=== PATIENT | male | born 1950 | race Caucasian/White ===

== ENCOUNTER → 2016-11-30 | Outpatient (CLI) | payer BC ==
[~2016-11-30] MED LIST: ASPEC325 PO; CETI10TA84 PO; MULT-506 PO; PRT/20 PO; [UNRECOGNIZED DRUG - OTHER] PO
--- NOTE | 2016-11-30 12:27 | DIAGNOSTIC IMAGING REPORT ---
CHEST 2 VIEWS ROUTINE CLINICAL HISTORY: Cough. COMPARISON STUDY: Chest radiograph February 01, [address] T February 04, 2016. FINDINGS: Anterior cervical spine fusion is partially imaged. Lung volumes are normal. No pneumothorax or pleural effusion is present. There is no consolidation. Linear right midlung opacities are unchanged and likely reflect scarring or atelectasis. Cardiomediastinal silhouette is normal. IMPRESSION: No acute cardiopulmonary findings. Electronically signed by: Ashu Pena M.D. 11/30/2016 12:26 PM Dictated Date/Time: 11/30/2016 12:24 PM
== END | disposition home or self-care (01) ==
LOC: C.RAD1850 12:14
PROVIDERS: ATTEND Family Medicine
DX: R05 Cough (principal)

== ENCOUNTER 2017-02-13 18:46 | Inpatient (IN) | payer BC, OTHER ==
[~2017-02-13] VITALS: Ht 177.8 cm; Wt 77.6 kg
[~2017-02-13 18:46] MED LIST changes: -OXYM0.0592 NAE; -PRD20 PO
--- NOTE | 2017-02-13 19:16 | EMERGENCY ROOM VISIT NOTE ---
History Report prepared by Olvin: Kermit Mehta Under the Supervision of: Dr. Pio Hoover M.D. First contact with patient: 19:02 Chief Complaint: ABNORMAL LABS Stated Complaint: HIGH WHITE BLOOD CELL COUNT-PHYSICIAN REFERRED History of Present Illness The patient is a 66 year old male who presents to the Emergency Room with complaints of a white blood cell count of 31. Since November, the patient has been having trouble with a cough and multiple sinus infections. He went to his PCP today and received blood work. They called him stating that his white blood cell counts were abnormally high. He usually runs between 4-10. The patient has a history of TB, specifically DINO. Last night, the patient began to experience a fever, chills, diaphoresis, a headache, and joint aches. When he woke up this morning, he noticed that his fever had broken. He finished his last dose of antibiotics and Tessalon Pearls last night. Source of History: patient Onset: recently Position: other (Global) Symptom Intensity: WBC Count of 31 Quality: other (High WBC count) Timing: constant Associated Symptoms: + chills, + diaphoresis, + cough, No fevers Review of Systems All systems have been listed, reviewed, and are negative other than those previously mentioned. Please see Additional Medical History Sheet. 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 (3) Cervical Disc Displacmnt (4) Diverticulosis Colon (W/O Ment Of Hemorrhage) (5) Elevated white blood cell count (6) Esophageal Reflux (7) Hyperlipidemia Nec/Nos (8) Right Knee DJD Family History Cancer Diabetes mellitus Social History Smoking Status: Never Smoker Alcohol Use: none Marital Status: Housing Status: lives with family Occupation Status: retired Current/Historical Medications Scheduled Oxymetazoline Hcl (Nasal [place]), 1 SPRAY MARCE UD Pantoprazole (Protonix), 20 MG PO BID Allergies Coded Allergies: NO KNOWN DRUG ALLERGIES (Verified Allergy, Unknown, NONE, 02/13/17) POLLEN (Verified Allergy, Unknown, DUST,POLLEN-ITCHY EYES RUNNY NOSE, 02/21) Physical Exam Vital Signs Date Time Temp Pulse Resp B/P (MAP) Pulse Ox O2 Delivery O2 Flow Rate FiO2 02/13/17 22:40 67 18 117/72 95 Room Air 02/13/17 20:54 95 Room Air 02/13/17 20:54 73 18 112/63 95 Room Air 02/13/17 18:53 36.7 92 20 135/77 95 Room Air Physical Exam GENERAL: Patient awake, alert, oriented x 3. Patient follows commands. Patient does not appear toxic. Patient is adequately hydrated and well- nourished. SKIN: No erythema, pallor, cyanosis or rash HEENT: Normal head, pupils equal, reactive to light and accommodation. Hearing aids removed. Ears normal. No signs of infection. Oral cavity and posterior pharynx appear normal. Neck: Without cervical adenopathy, no neck vein distention. LUNGS: Clear to auscultation. No wheezes, no rales, no rhonchi. HEART: No murmurs. No gallops. No rubs ABDOMEN: No masses, no rebound, no hepatomegaly or splenomegaly. EXTREMITIES: No signs of trauma. No pedal or pretibial edema. No calf or thigh tenderness. NEUROLOGIC: Cranial nerves II-XII within normal limits. No gross motor sensory function deficits. Medical Decision & Procedures Laboratory Results 02/13/17 19:34 Test 02/13/17 19:34 02/13/17 22:30 02/13/17 22:44 RDW Standard Deviation 43.8 fL (36.4-46.3) RDW Coefficient of Variation 14.1 % (11.5-14.5) White Blood Count 35.12 K/uL (4.8-10.8) Red Blood Count 4.78 M/uL (4.7-6.1) Hemoglobin 14.1 g/dL (14.0-18.0) Hematocrit 40.8 % (42-52) Mean Corpuscular Volume 85.4 fL (80-100) Mean Corpuscular Hemoglobin 29.5 pg (25-34) Mean Corpuscular Hemoglobin Concent 34.6 g/dl (32-36) Platelet Count 205 K/uL (130-400) Mean Platelet Volume 9.6 fL (7.4-10.4) Neutrophils (%) (Auto) 88.2 % Lymphocytes (%) (Auto) 8.3 % Monocytes (%) (Auto) 2.2 % Eosinophils (%) (Auto) 0.6 % Basophils (%) (Auto) 0.2 % Neutrophils # (Auto) 30.98 K/uL (1.4-6.5) Lymphocytes # (Auto) 2.92 K/uL (1.2-3.4) Monocytes # (Auto) 0.78 K/uL (0.11-0.59) Eosinophils # (Auto) 0.21 K/uL (0-0.5) Basophils # (Auto) 0.06 K/uL (0-0.2) Immature Granulocyte % (Auto) 0.5 % Immature Granulocyte # (Auto) 0.17 K/uL (0.00-0.02) Anion Gap 5.0 mmol/L (3-11) Est Creatinine Clear Calc Drug Dose 68.8 ml/min BUN/Creatinine Ratio 15.2 (10-20) Lactic Acid Level 1.7 mmol/L (0.4-2.0) Calcium Level 9.1 mg/dl (8.5-10.1) Total Bilirubin 1.4 mg/dl (0.2-1) Aspartate Amino Transf (AST/SGOT) 17 U/L (15-37) Alanine Aminotransferase (ALT/SGPT) 28 U/L (12-78) Alkaline Phosphatase 79 U/L (45-117) Troponin I < 0.015 ng/ml (0-0.045) Total Protein 7.4 gm/dl (6.4-8.2) Albumin 3.4 gm/dl (3.4-5.0) Globulin 4.0 gm/dl (2.5-4.0) Albumin/Globulin Ratio 0.9 (0.9-2) Laboratory results as stated above per my review. ECG Indication: other (Abnormal Labs) Rate (beats per minute): 81 Rhythm: normal sinus Findings: no acute ischemic change, no ectopy ED Course 1901: Past medical records reviewed. The patient was evaluated in room A9B. A complete history and physical examination was performed. 2030: Upon reevaluation, the patient is resting. I discussed today's findings with him. He verbalized agreement of the treatment plan. I spoke with Dr. Lerma of the [facility] to evaluate the patient for further management. Medical Decision I considered multiple diagnoses including: bronchitis, pneumonia, TB, and DINO. The patient is here with a cough, fever and night sweats. He is a prior history of mycobacterium infection. Multiple labs, EKG and imaging were obtained. Chest x-ray does not appear significantly different from his most recent chest x-rays. White count is significantly elevated. The patient was placed in respiratory isolation. I remain concerned that he may have another TB-like infection. I discussed care with the patient, his and the hospitalist. Medication Reconcilliation Current Medication List: was personally reviewed by me Blood Pressure Screening Patient's blood pressure: Normal blood pressure Blood pressure disposition: Did not require urgent referral Consults Time Called: 2028 Consulting Physician: Dr. Maria Guadalupe Pete [facility] [place] Returned Call: [phone] Discussed the patient's case with him. The patient will be evaluated for further management. Impression Primary Impression: Pulmonary infection Additional Impressions: History of Mycobacterium avium complex infection Leukocytosis Scribe Attestation The scribe's documentation has been prepared under my direction and personally reviewed by me in its entirety. I confirm that the note above accurately reflects all work, treatment, procedures, and medical decision making performed by me. Departure Information Dispostion Being Evaluated By Hospitalist Referrals Murali Molina MD (PCP) Patient Instructions My [facility] Problem Qualifiers
[2017-02-13] MEDS ORDERED: OXYM0.0592 NAE (19:26)
[2017-02-13 20:09] LABS: ALT/SGPT 28 U/L (12-78); BLOOD UREA NITROGEN 17 mg/dl (7-18); BUN/CREATININE RATIO 15.2 (10-20); CALCIUM 9.1 mg/dl (8.5-10.1); CARBON DIOXIDE 29 mmol/L (21-32); CHLORIDE 105 mmol/L (98-107); CREATININE 1.09 mg/dl (0.60-1.40); GLUCOSE 117 mg/dl (70-99); HEMATOCRIT 40.8 % (42-52); MEAN CELL VOLUME 85.4 fL (80-100); MEAN CORPUSCULAR HEMOGLOBIN 29.5 pg (25-34); MEAN CORPUSCULAR HGB CONC 34.6 g/dl (32-36); MEAN PLATELET VOLUME 9.6 fL (7.4-10.4); PLATELET COUNT 205 K/uL (130-400); POTASSIUM 3.5 mmol/L (3.5-5.1); RED BLOOD COUNT 4.78 M/uL (4.7-6.1); SODIUM 139 mmol/L (136-145); WHITE BLOOD COUNT 35.12 K/uL (4.8-10.8)
[2017-02-13 20:13] LABS: ALB/GLOB RATIO 0.9 (0.9-2); ALKALINE PHOSPHATASE 79 U/L (45-117); AST/SGOT 17 U/L (15-37)
[2017-02-13 20:14] LABS: BASO % 0.2 %; BASO ABS # 0.06 K/uL (0-0.2); COMPLETE YES; EOS % 0.6 %; IG% 0.5 %; LYMPH % 8.3 %; LYMPH ABS # 2.92 K/uL (1.2-3.4); MONO % 2.2 %; NEUT % 88.2 %
[2017-02-13] MEDS ORDERED: ONDANSETRON INJ 2 MG/ML 2 ML VIAL IV PRN (22:15)
[2017-02-13] MEDS ORDERED: ALUMINUM/MAGNESIUM/SIMETH (MAALOX MAX) 30 ML UDC PO PRN (22:15)
[2017-02-13] MEDS ORDERED: POLYETHYLENE (MIRALAX) 17 GM PACK PO PRN (22:15)
[2017-02-13] MEDS ORDERED: MAGNESIUM HYDROXIDE SUSP 30 ML UDC PO PRN (22:15)
[2017-02-13] MEDS ORDERED: ACETAMINOPHEN 325 MG TAB PO PRN (22:15)
[2017-02-13] MEDS ORDERED: OPTIRAY 320 IV PRN (23:00)
[2017-02-13 23:11] LABS: HEMATOCRIT 43.8 % (42-52); MEAN CELL VOLUME 85.5 fL (80-100); MEAN CORPUSCULAR HEMOGLOBIN 28.7 pg (25-34); MEAN CORPUSCULAR HGB CONC 33.6 g/dl (32-36); MEAN PLATELET VOLUME 9.8 fL (7.4-10.4); PLATELET COUNT 204 K/uL (130-400); RED BLOOD COUNT 5.12 M/uL (4.7-6.1); WHITE BLOOD COUNT 27.44 K/uL (4.8-10.8)
[2017-02-13 23:17] LABS: PROTHROMBIN TIME (PATIENT) 10.8 SECONDS (9.0-12.0)
[2017-02-13 23:23] VITALS: BP 106/68; PULSE 66; TEMP 36.8; O2SAT 94; Ht 177.8 cm; Wt 77.6 kg
[2017-02-13 23:27] LABS: CREATININE 0.97 mg/dl (0.60-1.40)
--- NOTE | 2017-02-13 23:29 | History and Physical ---
History & Physical Date & Time of Service: Feb 13, 2017 at 23:25 Chief Complaint: Elevated White Blood Cell Count Primary Care Physician: Murali Molina MD History of Present Illness This is a 66 y/o M who presents to the ED after being told by his PCP that his labs from earlier today revealed a markedly elevated white count. He has been battling a persistent cough since November. His PCP's office has tried different treatment modalities without much improvement. He did have a sputum culture also that was reportedly negative. He was most recently treated for sinusitis; unsure of the antibiotic. He does have a history of DINO in 2013 that was treated with azithromycin, ethambutol and rifampin. He has since been clear of DINO. He has had chills/sweats/weakness otherwise ROS is negative. 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 Past Medical/Surgical History Medical Problems: (1) Cerv Spondyl W Myelopath Status: Chronic (2) Cervical Disc Degen Status: Chronic (3) Cervical Disc Displacmnt Status: Chronic (4) Diverticulosis Colon (W/O Ment Of Hemorrhage) Status: Chronic (5) Esophageal Reflux Status: Chronic (6) Hyperlipidemia Nec/Nos Status: Chronic Family History Cancer Diabetes mellitus Social History Smoking Status: Never Smoker Alcohol Use: occasionally Drug Use: none Marital Status: Housing status: lives with family Occupational Status: retired Immunizations History of Influenza Vaccine: Yes History of Tetanus Vaccine?: Yes History of Pneumococcal: No History of Hepatitis B Vaccine: Unknown Multi-Drug Resistant Organisms History of MDRO: No Allergies Coded Allergies: NO KNOWN DRUG ALLERGIES (Verified Allergy, Unknown, NONE, 02/13/17) POLLEN (Verified Allergy, Unknown, DUST,POLLEN-ITCHY EYES RUNNY NOSE, 02/21) Home Medications Scheduled Oxymetazoline Hcl (Nasal [place]), 1 SPRAY MARCE UD Pantoprazole (Protonix), 20 MG PO BID Review of Systems Constitutional: + chills, + sweats Respiratory: + cough, No shortness of breath, No dyspnea on exertion, No dyspnea at rest Cardiovascular: No chest pain Abdomen: No pain, No nausea, No vomiting, No diarrhea Genitourinary - Male: No hematuria, No dysuria, No urinary frequency, No urinary urgency Physical Exam Vital Signs Date Time Temp Pulse Resp B/P (MAP) Pulse Ox O2 Delivery O2 Flow Rate FiO2 02/13/17 23:02 67 18 117/72 95 02/13/17 22:40 67 18 117/72 95 Room Air 02/13/17 20:54 95 Room Air 02/13/17 20:54 73 18 112/63 95 Room Air 02/13/17 18:53 36.7 92 20 135/77 95 Room Air General Appearance: no apparent distress Eyes: PERRL, EOMI ENT: hearing grossly normal, pharynx normal Respiratory/Chest: lungs clear, normal breath sounds, no respiratory distress, no accessory muscle use Cardiovascular: regular rate, rhythm, no edema, no murmur, normal peripheral pulses Abdomen/GI: normal bowel sounds, non tender, soft Extremities/Musculoskelatal: no calf tenderness, no pedal edema, normal range of motion Neurologic/Psych: alert, normal mood/affect, oriented x 3 Diagnostics Laboratory Results Results Past 24 Hours Test 02/13/17 19:34 02/13/17 22:44 02/13/17 22:50 Range/Units White Blood Count 35.12 27.44 4.8-10.8 K/uL Red Blood Count 4.78 5.12 4.7-6.1 M/uL Hemoglobin 14.1 14.7 14.0-18.0 g/dL Hematocrit 40.8 43.8 42-52 % Mean Corpuscular Volume 85.4 85.5 80-100 fL Mean Corpuscular Hemoglobin 29.5 28.7 25-34 pg Mean Corpuscular Hemoglobin Concent 34.6 33.6 32-36 g/dl Platelet Count 205 204 130-400 K/uL Mean Platelet Volume 9.6 9.8 7.4-10.4 fL Neutrophils (%) (Auto) 88.2 % Lymphocytes (%) (Auto) 8.3 % Monocytes (%) (Auto) 2.2 % Eosinophils (%) (Auto) 0.6 % Basophils (%) (Auto) 0.2 % Neutrophils # (Auto) 30.98 1.4-6.5 K/uL Lymphocytes # (Auto) 2.92 1.2-3.4 K/uL Monocytes # (Auto) 0.78 0.11-0.59 K/uL Eosinophils # (Auto) 0.21 0-0.5 K/uL Basophils # (Auto) 0.06 0-0.2 K/uL RDW Standard Deviation 43.8 44.0 36.4-46.3 fL RDW Coefficient of Variation 14.1 14.1 11.5-14.5 % Immature Granulocyte % (Auto) 0.5 % Immature Granulocyte # (Auto) 0.17 0.00-0.02 K/uL Sodium Level 139 136-145 mmol/L Potassium Level 3.5 3.5-5.1 mmol/L Chloride Level 105 98-107 mmol/L Carbon Dioxide Level 29 21-32 mmol/L Anion Gap 5.0 3-11 mmol/L Blood Urea Nitrogen 17 7-18 mg/dl Creatinine 1.09 0.60-1.40 mg/dl Est Creatinine Clear Calc Drug Dose 68.8 ml/min Estimated GFR () 81.5 Estimated GFR (Non- 70.4 BUN/Creatinine Ratio 15.2 10-20 Random Glucose 117 70-99 mg/dl Lactic Acid Level 1.7 0.4-2.0 mmol/L Calcium Level 9.1 8.5-10.1 mg/dl Total Bilirubin 1.4 0.2-1 mg/dl Aspartate Amino Transf (AST/SGOT) 17 15-37 U/L Alanine Aminotransferase (ALT/SGPT) 28 12-78 U/L Alkaline Phosphatase 79 45-117 U/L Troponin I < 0.015 0-0.045 ng/ml Total Protein 7.4 6.4-8.2 gm/dl Albumin 3.4 3.4-5.0 gm/dl Globulin 4.0 2.5-4.0 gm/dl Albumin/Globulin Ratio 0.9 0.9-2 Influenza Type A Antigen Neg for Influ A NEG Influenza Type B Antigen Neg for Influ B NEG Prothrombin Time 10.8 9.0-12.0 SECONDS Prothromb Time International Ratio 1.0 0.9-1.1 Microbiology Results 02/13/17 Blood Culture, Received Pending 02/13/17 Blood Culture, Received Pending Impression Assessment and Plan This is a 66 y/o M who presents with persistent cough and elevated white count. He does have a hsitory DINO in 2013 Persistent cough Marked leukocytosis, concern for Dino? other infectious pathology Azithromycin Sputum cultures, blood cultures CT without evidence of infectious pathology CT sinus unremarkable Xray negative ID consulted Consider pulm eval. DVT proph: Lovenox Code: Full Resident Physician Supervision Note: I was present with Dr. Carpio during the history and exam. I discussed the case with the resident and agree with the findings and plan as documented in the note. Any exceptions or clarifications are listed here: [None] Documented By: Jesus Manuel Lerma 66 y/o M presenting to the ER at [facility] of his primary MD - was sent in due to low-grade fevers, persistent cough, leukocytosis. There was concern of PNM as he has a history of DINO PNM in 2013. OE AAO x 3 S1,2 R CTAB NT, ND No CCE P: Pt was initially placed on isolation as he was thought to have a history of TB however this is apparently not the case - rather he has a history of DINO - isolation was DCd Placed on Zithromax pending ID eval Level of Care Med/Surg Resuscitation Status FULL RESUSCITATION VTE Prophylaxis VTE Risk Assessment Done? Y/N: Yes Risk Level: Moderate
[2017-02-14 00:08] LABS: INFLUENZA A PCR Neg for Influ A (NEG); INFLUENZA B PCR Neg for Influ B (NEG)
[2017-02-14 00:27] LABS: URINE APPEARANCE CLEAR (CLEAR); URINE BILIRUBIN NEG (NEG); URINE COLOR YELLOW; URINE NITRITE NEG (NEG); URINE SPECIFIC GRAVITY 1.015 (1.000-1.030); UROBILINOGEN NEG (NEG); ZZUR CULT IF INDIC CLEAN CATCH NO
[2017-02-14 00:28] LABS: MANUAL MICROSCOPIC REQUIRED? NO; REVIEW REQ? NO
--- NOTE | 2017-02-14 07:00 | DIAGNOSTIC IMAGING REPORT ---
CT OF THE CHEST WITH IV CONTRAST CLINICAL HISTORY: Persistent cough. Elevated white count. Suspected tuberculosis. COMPARISON STUDY: 02/04/2016 TECHNIQUE: Following the IV administration of 94 mL of Optiray-320, CT of the thorax was performed from the thoracic inlet to the lung bases. Images are reviewed in the axial, sagittal, and coronal planes. IV contrast was administered without complication. A dose lowering technique was utilized adhering to the principles of ALARA. CT DOSE: 592.36 mGycm FINDINGS: Thyroid: Imaged portions of the thyroid gland are normal in appearance. Thoracic aorta: The thoracic aorta is normal in course and caliber, noting standard 3-vessel arch anatomy. No aneurysm or dissection is seen. Pulmonary vasculature: The pulmonary trunk is normal in caliber. There are no central filling defects identified to suggest pulmonary embolus. Note that this examination was not protocoled for the evaluation of pulmonary emboli. HEART: The heart is normal in size and configuration, without pericardial effusion. Lungs and pleural spaces: There are dependent atelectatic changes. Since prior study, the patient has developed subtle groundglass opacities within the right lower lobe. In addition there is a 2 mm solid nodule within the right lower lobe as visualized in image #196/306. The findings are statistically inflammatory. Mediastinum: There are multiple small mediastinal lymph nodes which do not individually enlarged by size criteria Meg: There is no pathologic hilar adenopathy Axilla: Is no pathologic axillary lymphadenopathy Upper abdomen: Partially visualized upper abdominal viscera is within normal limits. Skeletal structures: There are no lytic or blastic osseous lesions. IMPRESSION: Interval development of very subtle right lower lobe groundglass opacities, statistically infectious/inflammatory. Electronically signed by: Rober Dejesus M.D. 02/14/2017 6:59 AM Dictated Date/Time: 02/14/2017 6:48 AM
--- NOTE | 2017-02-14 07:09 | DIAGNOSTIC IMAGING REPORT ---
SINUSES-MAXILLOFACIAL W/O CT DOSE: 285.25 mGycm HISTORY: Cough. Dyspnea. persistent cough TECHNIQUE: Multiaxial CT images of the paranasal sinuses were performed and reformatted in the coronal plane without the use of contrast. A dose lowering technique was utilized adhering to the principles of ALARA. COMPARISON: None. FINDINGS: All major sinuses are considered generally clear. Maxillary sinuses are completely/near completely atrophic in this patient. Minimal mucosal thickening in the ethmoids. Mastoid air cells are considered clear. The bony structures and orbits are intact. The ostiomeatal complex is not present in this patient. The mastoid air cells are clear. The nasal septum is midline. The orbits are unremarkable. IMPRESSION: 1. 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 Minimal/mild mucosal thickening in the ethmoids. 3. All remaining components of the sinuses are unremarkable. The above report was generated using voice recognition software. It may contain grammatical, syntax or spelling errors. Electronically signed by: Ortiz Ortiz M.D. 02/14/2017 7:08 AM Dictated Date/Time: 02/14/2017 7:01 AM
[2017-02-14 07:27] VITALS: BP 114/67; PULSE 56; TEMP 36.5; O2SAT 94
[2017-02-14] MEDS: OXYMETAZOLINE HCL 0.05% NA SPR 15 ML BTL NAE SCH (07:58)
[2017-02-14] MEDS: PANTOprazole SOD 40 MG TAB PO SCH ×2 (07:58→20:18)
[2017-02-14] MEDS: ENOXAPARIN 40 MG/0.4 ML SYR SQ SCH (07:59)
[2017-02-14] MEDS ORDERED: AZITHROMYCIN 250 MG TAB PO SCH (08:00)
--- NOTE | 2017-02-14 08:19 | Family Medicine Progress Note ---
Progress Note Date of Service Feb 14, 2017. Subjective Pt evaluation today including: conversation w/ patient, physical exam, chart review, lab review Pain: denies PO Intake: adequate Voiding: no voiding problems Sitting up in bed, watching television. Pt reports history of persistent cough since November. Pt reports no issues breathing at this time, and that he feels comfortable now. Constitutional: No fever, No chills Respiratory: + cough, No wheezing, No shortness of breath Cardiovascular: No chest pain Abdomen: No pain, No nausea, No vomiting, No diarrhea, No constipation Medications Current Inpatient Medications Medications (Trade) Dose Ordered Sig/Andie Route Start Time Stop Time Status Last Admin Dose Admin Enoxaparin Sodium (Lovenox Inj) 40 mg Q24H SQ 02/14/17 09:00 03/16/17 08:59 02/14/17 07:59 40 MG Acetaminophen (Tylenol Tab) 650 mg Q4H PRN PO 02/13/17 22:15 03/15/17 22:14 Al Hydrox/Mg Hydrox/Simethicone (Maalox Max Susp) 15 ml Q4H PRN PO 02/13/17 22:15 03/15/17 22:14 Magnesium Hydroxide (Milk Of Magnesia Susp) 30 ml Q6H PRN PO 02/13/17 22:15 03/15/17 22:14 Polyethylene (Miralax Powder Packet) 17 gm DAILY PRN PO 02/13/17 22:15 03/15/17 22:14 Ondansetron HCl (Zofran Inj) 4 mg Q6H PRN IV 02/13/17 22:15 03/15/17 22:14 Oxymetazoline HCl (Afrin 0.05% Nasal [place]) 1 sprays DAILY MARCE 02/14/17 08:00 03/16/17 08:59 02/14/17 07:58 1 SPRAYS Pantoprazole Sodium (Protonix Tab) 40 mg BID PO 02/14/17 08:00 03/16/17 08:59 02/14/17 20:18 40 MG Ioversol (Optiray 320) 111 ml UD PRN IV 02/13/17 23:00 02/17/17 22:59 Objective Physical Exam General Appearance: WD/WN, no apparent distress Eyes: normal inspection, EOMI Respiratory/Chest: chest non-tender, lungs clear, normal breath sounds, no respiratory distress, no accessory muscle use Cardiovascular: regular rate, rhythm, no gallop, no JVD Abdomen: normal bowel sounds, non tender, soft Extremities: normal range of motion, non-tender, normal inspection Neurologic/Psychiatric: alert, normal mood/affect Laboratory Results 02/14/17 08:43 Red Blood Count 4.79, Mean Corpuscular Volume 86.0, Mean Corpuscular Hemoglobin 29.4, Mean Corpuscular Hemoglobin Concent 34.2, Mean Platelet Volume 9.4, Neutrophils (%) (Auto) 81.9, Lymphocytes (%) (Auto) 11.4, Monocytes (%) (Auto) 4.6, Eosinophils (%) (Auto) 1.4, Basophils (%) (Auto) 0.3, Neutrophils # (Auto) 13.96, Lymphocytes # (Auto) 1.95, Monocytes # (Auto) 0.79, Eosinophils # (Auto) 0.24, Basophils # (Auto) 0.05 02/14/17 08:43 Test 02/14/17 00:15 02/14/17 08:43 02/14/17 17:32 Urine Color YELLOW Urine Appearance CLEAR (CLEAR) Urine pH 6.0 (4.5-7.5) Urine Specific Ary 1.015 (1.000-1.030) Urine Protein NEG (NEG) Urine Glucose (UA) NEG (NEG) Urine Ketones NEG (NEG) Urine Occult Blood NEG (NEG) Urine Nitrite NEG (NEG) Urine Bilirubin NEG (NEG) Urine Urobilinogen NEG (NEG) Urine Leukocyte Esterase NEG (NEG) White Blood Count 17.06 K/uL (4.8-10.8) Red Blood Count 4.79 M/uL (4.7-6.1) Hemoglobin 14.1 g/dL (14.0-18.0) Hematocrit 41.2 % (42-52) Mean Corpuscular Volume 86.0 fL (80-100) Mean Corpuscular Hemoglobin 29.4 pg (25-34) Mean Corpuscular Hemoglobin Concent 34.2 g/dl (32-36) Platelet Count 179 K/uL (130-400) Mean Platelet Volume 9.4 fL (7.4-10.4) Neutrophils (%) (Auto) 81.9 % Lymphocytes (%) (Auto) 11.4 % Monocytes (%) (Auto) 4.6 % Eosinophils (%) (Auto) 1.4 % Basophils (%) (Auto) 0.3 % Neutrophils # (Auto) 13.96 K/uL (1.4-6.5) Lymphocytes # (Auto) 1.95 K/uL (1.2-3.4) Monocytes # (Auto) 0.79 K/uL (0.11-0.59) Eosinophils # (Auto) 0.24 K/uL (0-0.5) Basophils # (Auto) 0.05 K/uL (0-0.2) RDW Standard Deviation 44.9 fL (36.4-46.3) RDW Coefficient of Variation 14.4 % (11.5-14.5) Immature Granulocyte % (Auto) 0.4 % Immature Granulocyte # (Auto) 0.07 K/uL (0.00-0.02) Anion Gap 6.0 mmol/L (3-11) Est Creatinine Clear Calc Drug Dose 75.8 ml/min Estimated GFR () 91.6 Estimated GFR (Non- 79.0 BUN/Creatinine Ratio 16.4 (10-20) Calcium Level 9.1 mg/dl (8.5-10.1) Erythrocyte Sedimentation Rate 26 mm/hr (0-14) C-Reactive Protein 5.18 mg/dl (0-0.29) Immunoglobulin G 1070.0 mg/dL (700-1600) Immunoglobulin A 349.0 mg/dL (70-400) Immunoglobulin M 101.0 mg/dL (40-230) Assessment and Plan 66 M here for persistent cough since November, with marked leukocytosis (WBC 35) and h/o DINO in 2013. Seen in outpatient for this by Dr. Molina but after failing 10 day course of Doxycycline, yellow green mucus persistent, CXR negative early in the course of illness. Persistent Cough with markedly elevated leukocytosis - pt has been seen in out patient and treated thrice with Doxycycline, no improvement. 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 H/o tobacco abuse, says he uses dip tobacco occasionally. - CT chest shows inflammatory changes: "dependent atelectatic changes. Since prior study, the patient has developed subtle groundglass opacities within the right lower lobe. In addition there is a 2 mm solid nodule within the right lower lobe as visualized in image #196/[id number]. The findings are statistically inflammatory." - Has h/o allergic rhinosinusitis. On admission, CT sinus showed minimal inflammation. - Has received 1 dose of azythromycin with subsequent improvement in WCC. ID recs appreciated, leukocytosis likely reactive, no need for further abx at this time. - Pulmonology will proceed with bronchoscopy, follow-up sputum bacterial and AFB cultures as well as blood cultures.Serum mycoplasma chlamydia antibodies, urine Legionella antigen. VERÓNICA, ANCA, ESR, CRP, IgE, IgG/M/A, RF and CCP. Consider possible swallow study. - Consider hematology consult given extent of leukocytosis. Rhinosinusitis - continue fluids, afrin PPX: Lovenox, PPI Dispo: med/surg code: FULL Continued [facility] stay due to: multiple IV medications needed Discharge planning: home Resident Tracking Resident Involvement: Resident Care Provided Care Provided: Adult Hospital Medicine
[2017-02-14 08:59] LABS: BASO % 0.3 %; BASO ABS # 0.05 K/uL (0-0.2); COMPLETE YES; EOS % 1.4 %; HEMATOCRIT 41.2 % (42-52); IG% 0.4 %; LYMPH % 11.4 %; LYMPH ABS # 1.95 K/uL (1.2-3.4); MEAN CORPUSCULAR HEMOGLOBIN 29.4 pg (25-34); MEAN CORPUSCULAR HGB CONC 34.2 g/dl (32-36); MEAN PLATELET VOLUME 9.4 fL (7.4-10.4); MONO % 4.6 %; NEUT % 81.9 %; PLATELET COUNT 179 K/uL (130-400); RED BLOOD COUNT 4.79 M/uL (4.7-6.1); WHITE BLOOD COUNT 17.06 K/uL (4.8-10.8)
[2017-02-14 09:35] LABS: BUN/CREATININE RATIO 16.4 (10-20); CALCIUM 9.1 mg/dl (8.5-10.1); CREATININE 0.99 mg/dl (0.60-1.40); POTASSIUM 4.1 mmol/L (3.5-5.1)
--- NOTE | 2017-02-14 11:16 | Progress Note ---
Progress Note Date of Service Feb 14, 2017. Progress Note ID Consult Dictated #[id number] A/P: 1. Leukocytosis -resolving, suspect reactive -Would hold abx -If cough continues, would schedule outpt pulm workup, may need bronch - ? non infectious causes as well, asthma, asbestosis, GERD -Will not resume MAC therapy at this time -No contraindication for d/c from ID standpoint, thank you
--- NOTE | 2017-02-14 11:44 | INFECT. DISEASE CONSULTATION ---
DATE OF CONSULTATION: 02/14/2017 HISTORY OF PRESENT ILLNESS: This is a 66-year-old gentleman who was admitted after he had outpatient blood work that showed leukocytosis of 41. When he came to the Emergency Room, his white blood cell count was 35. This morning it is 27. 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 He states he had a sputum culture that was positive and he had a repeat culture, which was negative and his therapy was discontinued after 8 months. He did have significant abdominal pain and vomiting associated with this, but he did complete 8 weeks. Since November, he has had recurrent dry intermittent cough. One night this week after taking Tessalon Perles, he had increasing cough and it was suggested by his that he follow with his primary care physician. He did have blood work yesterday and his white blood cell count was elevated. He states he was recently on an antibiotic, although he cannot remember the name and Tessalon Perles. He denies a prednisone taper or any inhaled steroids prior to admission. He describes his cough as intermittent and dry. He denies any hemoptysis or purulent sputum. He denies any associated shortness of breath with this. He has no dyspnea on exertion. He has no change in weight. He denies any fevers or chills. He denies any chest pain. He does not have any post-tussive emesis. He did have a flu swab which was negative. He has been afebrile since admission. He is currently being followed off of antibiotics. His blood cultures are pending. He did have a normal lactate and normal LFTs in the ER. He did have CT of his sinuses which showed maxillary atrophy. He also had a CT of the chest which showed a very subtle change to the right lower lobe which the patient states he has had in the past. He currently does not follow regularly with pulmonology. His remaining review of systems is reviewed and is negative. He is asking to be discharged to home. PAST MEDICAL HISTORY: Significant for cervical spine disease, diverticulosis, GERD and hyperlipidemia. He also had a history of MAC, which was treated 3 years ago. FAMILY HISTORY: Noncontributory. SOCIAL HISTORY: Negative for tobacco use, drug use or alcohol use. He is and lives with his family. He denies any sick contacts. He does have a history of asbestosis exposure. ALLERGIES: He has no known drug allergies. CURRENT MEDICATIONS: Include Lovenox, Protonix, Zithromax which was started this morning, Tylenol, Maalox, milk of magnesia, MiraLax and Zofran. PHYSICAL EXAMINATION: VITAL SIGNS: He is afebrile, pulse 56, respiratory rate 18, blood pressure is 114/67, oxygen saturation is 94-95% on room air. GENERAL: He is awake, alert and oriented x3. He is in no acute distress. HEENT: Mucous membranes are moist. Extraocular muscles are intact. HEART: Regular. LUNGS: Decreased at the bases bilaterally. There is no wheezing or rhonchi. ABDOMEN: Soft, nontender, nondistended. EXTREMITIES: There is no lower extremity edema bilaterally. SKIN: Without rash. LABORATORY STUDIES: CBC today reveals a white blood cell count of 17.0, hemoglobin 14.1, platelets are 179. Chemistry panel reveals a sodium of 139, potassium 4.1, chloride 105, bicarb 28, BUN 16, creatinine 0.9 and glucose is 84. LFTs are normal. Lactic acid is normal. Urinalysis is negative. Blood cultures are pending. IMAGING: As above. ASSESSMENT AND PLAN: Leukocytosis which has had significant improvement and likely is elevated on a reactive basis. He denies any recent steroid use. I would hold off on any antibiotics. If his cough continues, he certainly could have continued outpatient workup. I do not see any contraindication for discharge off of antibiotics. JOSE
[2017-02-14 14:25] VITALS: BP 122/75; PULSE 71; TEMP 36.6; O2SAT 95
[2017-02-14 16:00] VITALS: O2SAT 95
--- NOTE | 2017-02-14 17:09 | Pulmonary Consultation ---
History General Date of Service: Feb 14, 2017. Stated Complaint: Elevated White Blood Cell Count HPI The patient is a 66 year old male who presents to [facility] with complaints of Elevated White Blood Cell Count. The patient's primary care provider is Murali Molina MD. Mr. 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 Patient states that he's had chronic cough with nonproductive sputum as well as multiple sinus infections in the past. He states that he has had cough since November. He recently completely a course of doxycycline and Tessolon Perles with some resolution of his symptoms.On the day prior to admission he had subjective fever, chills or chills, myalgia, headaches and joint pain. He denies any appetite changes, weight loss, nausea, vomiting or diarrheal symptoms. He denies any sick contacts or recent travel. Denies any corticosteroid use an outpatient. Vital signs at admission, temperature 36.7, pulse 92, respiratory rate 20, blood pressure 135/77 saturating 95% on room air. Initial laboratory data shows white blood cell count of 35, hemoglobin of 14.1, hematocrit of 40, and platelet count of 205. Today white blood cell count is down to 17. CT chest with contrast is negative for pulmonary embolism. There are some subtle groundglass opacities within the right lower lobe. A sinus CT shows maxillary sinus atrophy. Blood cultures from 2016 still pending. Sputum culture from 02/14/2017 pending. His current medications include Zofran , MiraLAX, a combination, Maalox, Tylenol, Protonix, Afrin nasal spray and Lovenox. He received 1 dose of azithromycin. 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 He followed with Dr. Perez a pulmonary standpoint, and Dr. Larkin and from infectious disease. He received 8 months of rifampin, ethambutol and azithromycin. Pulmonary function tests from November 2013 showed to normal spirometry and lung volumes; Reduction in diffusion capacity. Historian: patient Onset: yesterday, last week Severity: moderate Complaint Status: persistent Review of Systems Constitutional: reports: as stated in HPI Eyes: reports: as stated in HPI ENT: reports: as stated in HPI Cardiovascular: reports: as stated in HPI Respiratory: reports: as stated in HPI Gastrointestinal: reports: as stated in HPI Genitourinary - Male: reports: as stated in HPI Musculoskeletal: reports: as stated in HPI Integumentary: reports: as stated in HPI Neurologic: reports: as stated in HPI Psychiatric: reports: as stated in HPI Endocrine: as stated in HPI Hematologic / Lymphatic: as stated in HPI Allergic / Immunologic: as stated in HPI All Other Symptoms All Other Systems: Reviewed and Negative Past Medical History Past Medical History: Active Problems 1. Asthma (493.90) 2. Atypical mycobacterial infection (031.9) 3. Chronic obstructive pulmonary disease (496) 4. Cough (786.2) 5. Dysphagia (787.20) 6. Esophageal reflux (530.81) 7. Functional murmur 8. Hearing loss (389.9) 9. History of allergy (V15.09) 10. Hyperlipidemia (272.4) 11. 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 Nausea (787.02) 13. Neck pain (723.1) 14. Screening examination for pulmonary tuberculosis (V74.1) 15. Solitary pulmonary nodule (793.11) Past Medical History 1. 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 History of pleural effusion (V12.69) 3. History of Pneumonia (V12.61) 4. History of Vitamin D deficiency (268.9) Past Surgical History: Surgical History 1. History of Neck Surgery 2. History of Surgery Of Male Genitalia Vasectomy Family History Family History 1. Family history of malignant neoplasm of brain (V16.8) Social History Social History Never smoker Tobacco use (305.1) Hx Tobacco Use In Past Year?: No Smoking Status: Never Smoker Marital status: Housing status: lives with family Occupational Status: retired Immunizations History of Influenza Vaccine: Yes History of Tetanus Vaccine?: Yes History of Pneumococcal: No History of Hepatitis B Vaccine: Unknown History of MDRO History of MDRO: No Allergies Coded Allergies: NO KNOWN DRUG ALLERGIES (Verified Allergy, Unknown, NONE, 02/13/17) POLLEN (Verified Allergy, Unknown, DUST,POLLEN-ITCHY EYES RUNNY NOSE, 02/21) Current Medications Reported Home Medications Medications Dose Route/Sig Max Daily Dose Days Date Category Nasal [place] (Oxymetazoline Hcl) Unknown Strength Spr 1 [place] MARCE UD 02/13/17 Reported Protonix (Pantoprazole Sodium) 20 Mg Tab 20 Mg PO BID 02/01/16 Reported Physical Physical Exam Vital Signs: Date Time Temp Pulse Resp B/P (MAP) Pulse Ox O2 Delivery O2 Flow Rate FiO2 02/14/17 10:50 Room Air 02/14/17 07:27 36.5 56 18 114/67 (83) 94 Room Air 02/13/17 23:23 36.8 66 18 106/68 94 Room Air 02/13/17 23:02 67 18 117/72 95 02/13/17 22:40 67 18 117/72 95 Room Air 02/13/17 20:54 95 Room Air 02/13/17 20:54 73 18 112/63 95 Room Air 02/13/17 18:53 36.7 92 20 135/77 95 Room Air General Appearance: WELL-APPEARING, WD/WN, NO APPARENT DISTRESS Head: NORMOCEPHALIC, ATRAUMATIC Eyes: PERRLA, NO DISCHARGE, EOMI, SCLERAE NORMAL, CONJUNCTIVAE NORMAL ENT: NORMAL NASAL EXAM, NORMAL MOUTH EXAM, NORMAL THROAT EXAM ([place] II) Neck: NO TENDERNESS, TRACHEA MIDLINE, NO STRIDOR, SUPPLE Respiratory: BREATH SOUNDS NORMAL, CLEAR TO AUSCULTATION, CLEAR TO PERCUSSION Cardiovasular: REGULAR RATE/RHYTHM, NORMAL S1S2, NO M/G/R Abdomen: NON TENDER, NORMAL BOWEL SOUNDS, NO REBOUND, NO MASSES Back: NORMAL INSPECTION, NO MIDLINE TENDERNESS, NO CVA TENDERNESS Upper Extremities: NO EDEMA, NO DEFORMITY, NORMAL ROM (no cyanosis or clubbing) Lower Extremities: NO EDEMA, NO DEFORMITY, NORMAL ROM Pulses: dorsalis pedis (R) (2+), dorsalis pedis (L) (2+) Neuro: ALERT, ORIENTED x 3, NORMAL MOTOR EXAM, NORMAL SENSATION, NORMAL MEMORY Psychiatric: NORMAL AFFECT, NO SUICIDAL IDEATION, CONTRACTS FOR SAFETY Diagnostics Labs Results Past 24 Hours Test 02/13/17 19:34 02/13/17 22:44 02/13/17 22:50 02/14/17 00:15 Range/Units White Blood Count 35.12 27.44 4.8-10.8 K/uL Red Blood Count 4.78 5.12 4.7-6.1 M/uL Hemoglobin 14.1 14.7 14.0-18.0 g/dL Hematocrit 40.8 43.8 42-52 % Mean Corpuscular Volume 85.4 85.5 80-100 fL Mean Corpuscular Hemoglobin 29.5 28.7 25-34 pg Mean Corpuscular Hemoglobin Concent 34.6 33.6 32-36 g/dl Platelet Count 205 204 130-400 K/uL Mean Platelet Volume 9.6 9.8 7.4-10.4 fL Neutrophils (%) (Auto) 88.2 % Lymphocytes (%) (Auto) 8.3 % Monocytes (%) (Auto) 2.2 % Eosinophils (%) (Auto) 0.6 % Basophils (%) (Auto) 0.2 % Neutrophils # (Auto) 30.98 1.4-6.5 K/uL Lymphocytes # (Auto) 2.92 1.2-3.4 K/uL Monocytes # (Auto) 0.78 0.11-0.59 K/uL Eosinophils # (Auto) 0.21 0-0.5 K/uL Basophils # (Auto) 0.06 0-0.2 K/uL RDW Standard Deviation 43.8 44.0 36.4-46.3 fL RDW Coefficient of Variation 14.1 14.1 11.5-14.5 % Immature Granulocyte % (Auto) 0.5 % Immature Granulocyte # (Auto) 0.17 0.00-0.02 K/uL Sodium Level 139 136-145 mmol/L Potassium Level 3.5 3.5-5.1 mmol/L Chloride Level 105 98-107 mmol/L Carbon Dioxide Level 29 21-32 mmol/L Anion Gap 5.0 3-11 mmol/L Blood Urea Nitrogen 17 7-18 mg/dl Creatinine 1.09 0.97 0.60-1.40 mg/dl Est Creatinine Clear Calc Drug Dose 68.8 77.3 ml/min Estimated GFR () 81.5 93.9 Estimated GFR (Non- 70.4 81.0 BUN/Creatinine Ratio 15.2 10-20 Random Glucose 117 70-99 mg/dl Lactic Acid Level 1.7 0.4-2.0 mmol/L Calcium Level 9.1 8.5-10.1 mg/dl Total Bilirubin 1.4 0.2-1 mg/dl Aspartate Amino Transf (AST/SGOT) 17 15-37 U/L Alanine Aminotransferase (ALT/SGPT) 28 12-78 U/L Alkaline Phosphatase 79 45-117 U/L Troponin I < 0.015 0-0.045 ng/ml Total Protein 7.4 6.4-8.2 gm/dl Albumin 3.4 3.4-5.0 gm/dl Globulin 4.0 2.5-4.0 gm/dl Albumin/Globulin Ratio 0.9 0.9-2 Influenza Type A (RT-PCR) Neg for Influ A NEG Influenza Type A Antigen Neg for Influ A NEG Influenza Type B Antigen Neg for Influ B NEG Influenza Type B (RT-PCR) Neg for Influ B NEG Prothrombin Time 10.8 9.0-12.0 SECONDS Prothromb Time International Ratio 1.0 0.9-1.1 Urine Color YELLOW Urine Appearance CLEAR CLEAR Urine pH 6.0 4.5-7.5 Urine Specific [place] 1.015 1.000-1.030 Urine Protein NEG NEG Urine Glucose (UA) NEG NEG Urine Ketones NEG NEG Urine Occult Blood NEG NEG Urine Nitrite NEG NEG Urine Bilirubin NEG NEG Urine Urobilinogen NEG NEG Urine Leukocyte Esterase NEG NEG Test 02/14/17 08:43 Range/Units White Blood Count 17.06 4.8-10.8 K/uL Red Blood Count 4.79 4.7-6.1 M/uL Hemoglobin 14.1 14.0-18.0 g/dL Hematocrit 41.2 42-52 % Mean Corpuscular Volume 86.0 80-100 fL Mean Corpuscular Hemoglobin 29.4 25-34 pg Mean Corpuscular Hemoglobin Concent 34.2 32-36 g/dl Platelet Count 179 130-400 K/uL Mean Platelet Volume 9.4 7.4-10.4 fL Neutrophils (%) (Auto) 81.9 % Lymphocytes (%) (Auto) 11.4 % Monocytes (%) (Auto) 4.6 % Eosinophils (%) (Auto) 1.4 % Basophils (%) (Auto) 0.3 % Neutrophils # (Auto) 13.96 1.4-6.5 K/uL Lymphocytes # (Auto) 1.95 1.2-3.4 K/uL Monocytes # (Auto) 0.79 0.11-0.59 K/uL Eosinophils # (Auto) 0.24 0-0.5 K/uL Basophils # (Auto) 0.05 0-0.2 K/uL RDW Standard Deviation 44.9 36.4-46.3 fL RDW Coefficient of Variation 14.4 11.5-14.5 % Immature Granulocyte % (Auto) 0.4 % Immature Granulocyte # (Auto) 0.07 0.00-0.02 K/uL Sodium Level 139 136-145 mmol/L Potassium Level 4.1 3.5-5.1 mmol/L Chloride Level 105 98-107 mmol/L Carbon Dioxide Level 28 21-32 mmol/L Anion Gap 6.0 3-11 mmol/L Blood Urea Nitrogen 16 7-18 mg/dl Creatinine 0.99 0.60-1.40 mg/dl Est Creatinine Clear Calc Drug Dose 75.8 ml/min Estimated GFR () 91.6 Estimated GFR (Non- 79.0 BUN/Creatinine Ratio 16.4 10-20 Random Glucose 84 70-99 mg/dl Calcium Level 9.1 8.5-10.1 mg/dl Microbiology Results 02/13/17 Blood Culture, Received Pending 02/13/17 Blood Culture, Received Pending 02/14/17 Gram Stain, Received Pending 02/14/17 Sputum Culture, Received Pending Diagnostic Radiology CT OF THE CHEST WITH IV CONTRAST CLINICAL HISTORY: Persistent cough. Elevated white count. Suspected tuberculosis. COMPARISON STUDY: 02/04/2016 TECHNIQUE: Following the IV administration of 94 mL of Optiray-320, CT of the thorax was performed from the thoracic inlet to the lung bases. Images are reviewed in the axial, sagittal, and coronal planes. IV contrast was administered without complication. A dose lowering technique was utilized adhering to the principles of ALARA. CT DOSE: 592.36 mGycm FINDINGS: Thyroid: Imaged portions of the thyroid gland are normal in appearance. Thoracic aorta: The thoracic aorta is normal in course and caliber, noting standard 3-vessel arch anatomy. No aneurysm or dissection is seen. Pulmonary vasculature: The pulmonary trunk is normal in caliber. There are no central filling defects identified to suggest pulmonary embolus. Note that this examination was not protocoled for the evaluation of pulmonary emboli. HEART: The heart is normal in size and configuration, without pericardial effusion. Lungs and pleural spaces: There are dependent atelectatic changes. Since prior study, the patient has developed subtle groundglass opacities within the right lower lobe. In addition there is a 2 mm solid nodule within the right lower lobe as visualized in image #[id number]. The findings are statistically inflammatory. Mediastinum: There are multiple small mediastinal lymph nodes which do not individually enlarged by size criteria Meg: There is no pathologic hilar adenopathy Axilla: Is no pathologic axillary lymphadenopathy Upper abdomen: Partially visualized upper abdominal viscera is within normal limits. Skeletal structures: There are no lytic or blastic osseous lesions. IMPRESSION: Interval development of very subtle right lower lobe groundglass opacities, statistically infectious/inflammatory. SINUSES-MAXILLOFACIAL W/O CT DOSE: 285.25 mGycm HISTORY: Cough. Dyspnea. persistent cough TECHNIQUE: Multiaxial CT images of the paranasal sinuses were performed and reformatted in the coronal plane without the use of contrast. A dose lowering technique was utilized adhering to the principles of ALARA. COMPARISON: None. FINDINGS: All major sinuses are considered generally clear. Maxillary sinuses are completely/near completely atrophic in this patient. Minimal mucosal thickening in the ethmoids. Mastoid air cells are considered clear. The bony structures and orbits are intact. The ostiomeatal complex is not present in this patient. The mastoid air cells are clear. The nasal septum is midline. The orbits are unremarkable. IMPRESSION: 1. 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 Minimal/mild mucosal thickening in the ethmoids. 3. All remaining components of the sinuses are unremarkable. EKG EKG on admission showed ventricular rate of 81 bpm Normal sinus rhythm. Impression Assessment and Plan Chronic Cough Abnormal imaging Sinusitis GERD History of Mycobacterium Leukocytosis Patient has chronic cough which may be multifactorial in nature. He has history of sinusitis, gastric reflux disease, and questionable history of asthma. 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 Patient found to have incidental finding of leukocytosis on routine blood work by PCP with subsequent malaise, myalgias and fever. He was prescribed Doxycycolin and Tessalon Perles. Chest imaging shows subtle groundglass opacities which could represent resolving infection versus inflammatory disease. Patient received azithromycin 1 dose and white blood cell count is decreasing. At this time I would continue with current management. Follow-up sputum bacterial and AFB cultures as well as blood cultures. Serum mycoplasma chlamydia antibodies, urine Legionella antigen. VERÓNICA, ANCA, ESR, CRP, IgE, IgG/M/A, RF and CCP. Recommend video swallow for possible aspiration. Continue with PPI and afrin nasal spray. At this time, I think a bronchoscopy will be of benefit to aid in diagnosis. He is agreement. Will keep him NPO past midnight. Also, I think a hematology consult is warranted with such an elevation in WBC count. I appreciate the consult.
[2017-02-14 18:31] LABS: C-REACTIVE PROTEIN 5.18 mg/dl (0-0.29)
[2017-02-15] VITALS: BP 114/69; PULSE 59; TEMP 36.6; O2SAT 97
[2017-02-15 06:19] LABS: CALCIUM 8.8 mg/dl (8.5-10.1); CREATININE 1.05 mg/dl (0.60-1.40); POTASSIUM 4.1 mmol/L (3.5-5.1)
[2017-02-15 07:10] VITALS: BP 118/73; PULSE 61; TEMP 36.5; O2SAT 94
[2017-02-15 07:42] LABS: BASO % 0.4 %; BASO ABS # 0.05 K/uL (0-0.2); COMPLETE YES; EOS % 2.9 %; HEMATOCRIT 42.9 % (42-52); IG% 0.3 %; LYMPH % 22.7 %; LYMPH ABS # 2.62 K/uL (1.2-3.4); MEAN CELL VOLUME 86.5 fL (80-100); MEAN CORPUSCULAR HEMOGLOBIN 29.4 pg (25-34); MEAN PLATELET VOLUME 10.9 fL (7.4-10.4); MONO % 8.3 %; NEUT % 65.4 %; PLATELET COUNT 221 K/uL (130-400); RED BLOOD COUNT 4.96 M/uL (4.7-6.1); WHITE BLOOD COUNT 11.52 K/uL (4.8-10.8)
[2017-02-15] MEDS: ENOXAPARIN 40 MG/0.4 ML SYR SQ SCH (08:44)
[2017-02-15] MEDS: OXYMETAZOLINE HCL 0.05% NA SPR 15 ML BTL NAE SCH (08:45)
--- NOTE | 2017-02-15 09:56 | Pulmonology Progress Note ---
Pulmonary Progress Note Date of Service Feb 15, 2017. Attending Dr. Pierson Subjective Patient seen and examined at bedside. He states that he is still coughing minimally, but feeling much better. He is up ambulating without dyspnea on exertion or at rest. He denies any chest pain. Denies any further episodes of fever or chills. Objective VS reviewed. Saturating well on room air. Tm 36.5, BP 114/69-118/73, P59-61, 16- 20, Sao2 94-97% on RA. Gen: AAOx3, NAD, speaking in full sentences CVS: S1, S2, RRR Lungs: CTA bilaterally, no wheezes. No use of accessory muscles or signs of respiratory distress. Abd: soft/NT/ND/BS+ Ext: no edema bilaterally, no cyanosis, no clubbing Labs reviewed WBC down today to 11 from 35 on admission. No eosinophilia Chemistry WNL. Influenza A/B serology neg Urine legionella Ag, Mycoplama IgM--pending IgG 1070, IgA 349, IgM 101 VERÓNICA--pending ANCA-pending Imaging reviewed. Medications reviewed. ESR 26, CRP 5.18 Assessment & Plan Chronic Cough Abnormal imaging Sinusitis GERD History of Mycobacterium Leukocytosis Pulmonary Nodules Patient has chronic cough which may be multifactorial in nature. He has history of sinusitis, gastric reflux disease, and questionable history of asthma. He also has history of Mycobacterium avium infection for which he is being treated for 8 months in the 2013. Patient found to have incidental finding of leukocytosis on routine blood work by PCP with subsequent malaise, myalgias and fever. He was prescribed Doxycycolin and Tessalon Perles. Chest imaging shows subtle groundglass opacities which could represent resolving infection versus inflammatory disease. Patient received azithromycin 1 dose and white blood cell count is decreasing. He has had no more fever since admission. He still has cough, but otherwise feeling better. He was currently NPO for possible bronchoscopy today. However, he would like to proceed conservatively at this time. Diet resumed. From a respiratory standpoint I feel that he is stable for discharge. WBC has improved without antibiotics, therefore I feel are not indicated at this time. He has agreed to short 5 day course of 20 mg prednisone daily with repeat imaging in about 6 weeks. For coughing, he benefit for codeine prn and albuterol prn. I advised him to [facility] for further management. Other labs can be followed up as an outpatient. ie --Serum mycoplasma chlamydia antibodies, urine Legionella antigen. VERÓNICA, ANCA, ESR, CRP, IgE, IgG/M/A, RF and CCP. sputum bacterial and AFB cultures Recommend video swallow for possible aspiration. Continue with PPI and afrin nasal spray. I will sign off case at this time. Please consult me if you have any other questions or concerns. Data Medications: Current Inpatient Medications Medications (Trade) Dose Ordered Sig/Andie Route Start Time Stop Time Status Last Admin Dose Admin Enoxaparin Sodium (Lovenox Inj) 40 mg Q24H SQ 02/14/17 09:00 03/16/17 08:59 02/14/17 07:59 40 MG Acetaminophen (Tylenol Tab) 650 mg Q4H PRN PO 02/13/17 22:15 03/15/17 22:14 Al Hydrox/Mg Hydrox/Simethicone (Maalox Max Susp) 15 ml Q4H PRN PO 02/13/17 22:15 03/15/17 22:14 Magnesium Hydroxide (Milk Of Magnesia Susp) 30 ml Q6H PRN PO 02/13/17 22:15 03/15/17 22:14 Polyethylene (Miralax Powder Packet) 17 gm DAILY PRN PO 02/13/17 22:15 03/15/17 22:14 Ondansetron HCl (Zofran Inj) 4 mg Q6H PRN IV 02/13/17 22:15 03/15/17 22:14 Oxymetazoline HCl (Afrin 0.05% Nasal [place]) 1 sprays DAILY MARCE 02/14/17 08:00 03/16/17 08:59 02/15/17 08:45 1 SPRAYS Pantoprazole Sodium (Protonix Tab) 40 mg BID PO 02/14/17 08:00 03/16/17 08:59 02/14/17 20:18 40 MG Ioversol (Optiray 320) 111 ml UD PRN IV 02/13/17 23:00 02/17/17 22:59 Vital Signs: Date Time Temp Pulse Resp B/P (MAP) Pulse Ox O2 Delivery O2 Flow Rate FiO2 02/15/17 09:08 Room Air 02/15/17 07:10 36.5 61 16 118/73 (88) 94 Room Air 02/15/17 00:00 36.6 59 20 114/69 (84) 97 Room Air 02/14/17 23:50 Room Air 02/14/17 23:27 Room Air 02/14/17 16:00 95 Room Air 02/14/17 14:25 36.6 71 18 122/75 (91) 95 Room Air 02/14/17 10:50 Room Air Laboratory Results: Last 24 Hours Test 02/14/17 17:32 02/15/17 05:14 02/15/17 08:55 Erythrocyte Sedimentation Rate 26 mm/hr C-Reactive Protein 5.18 mg/dl Immunoglobulin G 1070.0 mg/dL Immunoglobulin A 349.0 mg/dL Immunoglobulin M 101.0 mg/dL White Blood Count 11.52 K/uL Red Blood Count 4.96 M/uL Hemoglobin 14.6 g/dL Hematocrit 42.9 % Mean Corpuscular Volume 86.5 fL Mean Corpuscular Hemoglobin 29.4 pg Mean Corpuscular Hemoglobin Concent 34.0 g/dl Platelet Count 221 K/uL Mean Platelet Volume 10.9 fL Neutrophils (%) (Auto) 65.4 % Lymphocytes (%) (Auto) 22.7 % Monocytes (%) (Auto) 8.3 % Eosinophils (%) (Auto) 2.9 % Basophils (%) (Auto) 0.4 % Neutrophils # (Auto) 7.52 K/uL Lymphocytes # (Auto) 2.62 K/uL Monocytes # (Auto) 0.96 K/uL Eosinophils # (Auto) 0.33 K/uL Basophils # (Auto) 0.05 K/uL RDW Standard Deviation 44.8 fL RDW Coefficient of Variation 14.2 % Immature Granulocyte % (Auto) 0.3 % Immature Granulocyte # (Auto) 0.04 K/uL Sodium Level 140 mmol/L Potassium Level 4.1 mmol/L Chloride Level 106 mmol/L Carbon Dioxide Level 27 mmol/L Anion Gap 7.0 mmol/L Blood Urea Nitrogen 15 mg/dl Creatinine 1.05 mg/dl Est Creatinine Clear Calc Drug Dose 71.5 ml/min Estimated GFR () 85.3 Estimated GFR (Non- 73.6 BUN/Creatinine Ratio 14.0 Random Glucose 89 mg/dl Calcium Level 8.8 mg/dl
--- NOTE | 2017-02-15 10:56 | Family Medicine Progress Note ---
Progress Note Date of Service Feb 15, 2017. Assessment and Plan 66 M here for persistent cough since November, with marked leukocytosis (WBC 35) and h/o DINO in 2013. Seen in outpatient for this by Dr. Molina. Failure of 2x 10 day course of Doxycycline, yellow green mucus persistent, CXR negative early in the course of illness. Persistent Cough with markedly elevated leukocytosis - pt has been seen in out patient and treated twice with Doxycycline among other supportive therapies (nasal steroid, nasal ipratropium), no improvement. 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 H/o tobacco abuse, says he uses dip tobacco occasionally. - CT chest shows inflammatory changes: "dependent atelectatic changes. Since prior study, the patient has developed subtle groundglass opacities within the right lower lobe. In addition there is a 2 mm solid nodule within the right lower lobe as visualized in image #[id number]. The findings are statistically inflammatory." - Has h/o allergic rhinosinusitis. On admission, CT sinus showed minimal inflammation. Continue nasal steroids and nasal ipratropium, albuterol PRN, cough suppressants. - Has received 1 dose of azythromycin with subsequent improvement in WCC. ID recs appreciated, leukocytosis likely reactive, no need for further abx at this time. - Pulmonology discussed with pt and they agree on conservative treatment at this time, no bronchoscopy today. On discharge, PCP will follow-up sputum bacterial and AFB cultures as well as blood cultures.Serum mycoplasma chlamydia antibodies, urine Legionella antigen. VERÓNICA, ANCA, ESR, CRP, IgE, IgG/M/A, RF and CCP. Pulm also recommends consideration of swallow study, will inform PCP. Also will write short 5 day course of 20 mg prednisone daily with repeat imaging in about 6 weeks. Rhinosinusitis - continue fluids, nasal sprays. Supportive. PPX: Lovenox, PPI Dispo: home code: FULL From a respiratory standpoint I feel that he is stable for discharge. WBC has improved without antibiotics, therefore I feel are not indicated at this time. He has agreed to short 5 day course of 20 mg prednisone daily with repeat imaging in about 6 weeks. For coughing, he benefit for codeine prn and albuterol prn. I advised him to follow up with the [facility] upon discharge for further management. Other labs can be followed up as an outpatient. ie --Serum mycoplasma chlamydia antibodies, urine Legionella antigen. VERÓNICA, ANCA, ESR, CRP, IgE, IgG/M/A, RF and CCP. sputum bacterial and AFB cultures Recommend video swallow for possible aspiration. Continue with PPI and afrin nasal spray. Resident Tracking Resident Involvement: Resident Care Provided Care Provided: Adult Hospital Medicine
[2017-02-15] MEDS: PANTOprazole SOD 40 MG TAB PO SCH (11:14)
[2017-02-15 12:34] VITALS: BP 118/73; PULSE 61; TEMP 36.5; O2SAT 94
[2017-02-15] MEDS ORDERED: PRD20 PO (13:56)
--- NOTE | 2017-02-15 14:12 | Discharge Instructions ---
Discharge Instructions Date of Service Feb 15, 2017. Admission Reason for Admission: Elevated White Blood Cell Count Discharge Discharge Diagnosis / Problem: Elevated White Blood Cell Count, Chronic Cough Discharge Goals Goal(s): Improve disease control, Learn about illness Activity Recommendations Activity Limitations: as noted below Exercise/Sports Limitations: as tolerated May Resume Sexual Activity: when tolerated Shower/Bathe: no limitations Driving or Machine Use: no limitations . Instructions / Follow-Up Instructions / Follow-Up You were admitted due to a severely elevated white cell count of 41, which has now decreased to 11 after one dose of antibiotic. Studies are still pending that were ordered by pulmonology in order to understand what could be the underlying cause in your lungs. Throughout your admission, you were found to be oxygenating and breathing well, with no fevers. For your cough, we recommend that you continue to take the nasal sprays prescribed by your primary care doctor, as well as the steroid prescription we wrote for you. We also recommend that you see a telephone quotation clerk and get further work up, including your bronchoscopy, on an outpatient basis. Lastly, we discussed the possibility that this elevated white cell count may be due to other reasons, including an abnormal growth of white cells themselves. Please talk with your primary care doctor about this at your next visit, within a week preferably. Thank you for allowing us to participate in your care. Current Hospital Diet Patient's current hospital diet: Regular Diet Discharge Diet Recommended Diet: Regular Diet Fluid Restriction: None Pending Studies Studies pending at discharge: yes List of pending studies: On discharge, PCP will follow-up sputum bacterial and AFB cultures as well as blood cultures, serum mycoplasma chlamydia antibodies, urine Legionella antigen, VERÓNICA, ANCA, ESR, CRP, IgE, IgG/M/A, RF and CCP. Laboratory Results 02/15/17 05:14 Red Blood Count 4.96, Mean Corpuscular Volume 86.5, Mean Corpuscular Hemoglobin 29.4, Mean Corpuscular Hemoglobin Concent 34.0, Mean Platelet Volume 10.9, Neutrophils (%) (Auto) 65.4, Lymphocytes (%) (Auto) 22.7, Monocytes (%) (Auto) 8.3, Eosinophils (%) (Auto) 2.9, Basophils (%) (Auto) 0.4, Neutrophils # (Auto) 7.52, Lymphocytes # (Auto) 2.62, Monocytes # (Auto) 0.96, Eosinophils # (Auto) 0.33, Basophils # (Auto) 0.05 02/15/17 05:14 Test 02/14/17 17:32 02/15/17 05:14 02/15/17 08:55 Erythrocyte Sedimentation Rate 26 mm/hr (0-14) C-Reactive Protein 5.18 mg/dl (0-0.29) Immunoglobulin G 1070.0 mg/dL (700-1600) Immunoglobulin A 349.0 mg/dL (70-400) Immunoglobulin M 101.0 mg/dL (40-230) White Blood Count 11.52 K/uL (4.8-10.8) Red Blood Count 4.96 M/uL (4.7-6.1) Hemoglobin 14.6 g/dL (14.0-18.0) Hematocrit 42.9 % (42-52) Mean Corpuscular Volume 86.5 fL (80-100) Mean Corpuscular Hemoglobin 29.4 pg (25-34) Mean Corpuscular Hemoglobin Concent 34.0 g/dl (32-36) Platelet Count 221 K/uL (130-400) Mean Platelet Volume 10.9 fL (7.4-10.4) Neutrophils (%) (Auto) 65.4 % Lymphocytes (%) (Auto) 22.7 % Monocytes (%) (Auto) 8.3 % Eosinophils (%) (Auto) 2.9 % Basophils (%) (Auto) 0.4 % Neutrophils # (Auto) 7.52 K/uL (1.4-6.5) Lymphocytes # (Auto) 2.62 K/uL (1.2-3.4) Monocytes # (Auto) 0.96 K/uL (0.11-0.59) Eosinophils # (Auto) 0.33 K/uL (0-0.5) Basophils # (Auto) 0.05 K/uL (0-0.2) RDW Standard Deviation 44.8 fL (36.4-46.3) RDW Coefficient of Variation 14.2 % (11.5-14.5) Immature Granulocyte % (Auto) 0.3 % Immature Granulocyte # (Auto) 0.04 K/uL (0.00-0.02) Anion Gap 7.0 mmol/L (3-11) Est Creatinine Clear Calc Drug Dose 71.5 ml/min Estimated GFR () 85.3 Estimated GFR (Non- 73.6 BUN/Creatinine Ratio 14.0 (10-20) Calcium Level 8.8 mg/dl (8.5-10.1) Medical Emergencies . Who to Call and When: Medical Emergencies: If at any time you feel your situation is an emergency, please call 911 immediately. . Non-Emergent Contact Non-Emergency issues call your: Primary Care Provider . . "Provider Documentation" section prepared by Marlena Joseph. . Courtroom Deputy Recommendations Courtroom Deputy Recommendations: Pulmonology discussed with patient and they agree on conservative treatment at this time, and will leave future bronchoscopy to be done on an outpatient basis. On discharge, PCP will follow-up pending studies. Pulmonology also recommends consideration of a swallow study. Lastly, discussed with patient to do a short total of 5 days course of 20 mg prednisone daily with repeat chest imaging in about 6 weeks. VTE Core Measure Inpt VTE Proph given/why not?: Enoxaparin (Lovenox)SQ
--- NOTE | 2017-02-15 21:15 | Discharge Summary ---
Discharge Summary Date of Service Feb 15, 2017. Discharge Summary Admission Date: Feb 13, 2017 at 22:18 Discharge Date: Feb 15, 2017 Discharge Disposition: Home Principal Diagnosis: Elevated White Cell Count, Chronic Cough Immunizations: Have You Had Influenza Vaccine: Yes History of Tetanus Vaccine?: Yes History of Pneumococcal: No History of Hepatitis B Vaccine: Unknown Consultations: Pulmonology Infectious Disease Medication Reconciliation New Medications: Prednisone (Prednisone) 20 Mg Tab 20 MG PO DAILY for 4 Days, #4 TAB Continued Medications: Oxymetazoline Hcl (Nasal [place]) Unknown Strength Spr 1 SPRAY MARCE UD Pantoprazole (Protonix) 20 Mg Tab 20 MG PO BID, TAB Discharge Exam Review of Systems: Constitutional: No fever, No chills, No sweats, No weakness Respiratory: + cough, No sputum, No wheezing, No shortness of breath, No dyspnea on exertion, No dyspnea at rest Cardiovascular: No chest pain, No orthopnea, No PND, No edema Abdomen: No pain, No nausea, No vomiting, No diarrhea, No constipation Physical Exam: General Appearance: WD/WN, no apparent distress Eyes: normal inspection, EOMI Neck: supple, no adenopathy, no JVD, trachea midline Respiratory/Chest: chest non-tender, lungs clear, normal breath sounds, no respiratory distress, no accessory muscle use Cardiovascular: regular rate, rhythm, no edema, no gallop, no JVD Abdomen / GI: normal bowel sounds, non tender, soft Extremities: normal inspection, no calf tenderness, no pedal edema, normal range of motion, non-tender Neurologic/Psychiatric: alert, normal mood/affect, oriented x 3 Skin: normal color, warm/dry, no rash Lymphatic: no adenopathy (cervical, sup inguinal, axillary LN's wnl.) Hospital Course Mr. Mack is a 66 year old male with h/o was admitted here on PCP's recommendation after a critical lab value of WBC 41. 66 M here for persistent cough since November, with marked leukocytosis (WBC 35) and h/o DINO in 2013. Seen in outpatient for this by Dr. Molina. Failure of 2x 10 day course of Doxycycline , yellow green mucus persistent, CXR negative early in the course of illness. Persistent Cough with markedly elevated leukocytosis - Patient has been seen in out patient clinic since this summer and treated twice with Doxycycline among other supportive therapies (nasal steroid, nasal ipratropium), with no improvement. 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 H/o tobacco abuse, says he uses dip tobacco occasionally. - CT chest showed inflammatory changes: "dependent atelectatic changes. Since prior study, the patient has developed subtle groundglass opacities within the right lower lobe. In addition there is a 2 mm solid nodule within the right lower lobe as visualized in image #196/[id number]. The findings are statistically inflammatory." - Has h/o allergic rhinosinusitis. On admission, CT of his sinus showed minimal inflammation. Continue nasal steroids and nasal ipratropium, albuterol PRN, cough suppressants. - Received 1 dose of azythromycin with subsequent improvement in WCC. Per ID/ Pulm, leukocytosis may be reactive, and no further abx were indicated. - Pulmonology discussed with pt and they agree on conservative treatment at this time, no bronchoscopy done during admission. On discharge, PCP will follow- up sputum bacterial and AFB cultures as well as blood cultures. Serum mycoplasma chlamydia antibodies, urine Legionella antigen. VERÓNICA, ANCA, ESR, CRP, IgE, IgG/M/A, RF and CCP. - Pulm also recommends consideration of swallow study, will inform PCP. - Also will write short 5 day course of 20 mg prednisone daily. - Recommend repeat imaging in about 6 weeks. Rhinosinusitis - continue fluids, nasal sprays. Supportive. Total Time Spent: Greater than 30 minutes This includes examination of the patient, discharge planning, medication reconciliation, and communication with other providers. Discharge Instructions Please refer to the electronic Patient Visit Report (Discharge Instructions) for additional information. Follow-Up Follow up with your primary care provider within 5-7 days. Follow up with a district scout executive for bronchoscopy within 1 month. Additional Copies To Murali Molina MD Resident Tracking Resident Involvement: Resident Care Provided Care Provided: Adult [facility]
[2017-02-19 11:01] LABS: LEGIONELLA ANTIGEN NOT DETECTED (NOT DETECTED)
== END 2017-02-15 15:00 | disposition home or self-care (01) | DRG 204 ==
LOC: C.EDB 18:47 → C.4E 22:18 → EEVIPCON 22:18 → ENRESERV 22:37 → CANRESERV 22:37 → ENRESERV 22:42
PROVIDERS: ADMIT Internal Medicine; ATTEND Hospitalist
DX: R05 Cough (principal); K21.9 Gastro-esophageal reflux disease without esophagitis; E78.5 Hyperlipidemia, unspecified; D72.829 Elevated white blood cell count, unspecified; J32.9 Chronic sinusitis, unspecified; Z80.9 Family history of malignant neoplasm, unspecified; Z83.3 Family history of diabetes mellitus

== ENCOUNTER → 2017-02-13 | Outpatient (CLI) | payer BC ==
[~2017-02-13] MED LIST changes: +OXYM0.0592 NAE; +PRD20 PO
--- NOTE | 2017-02-13 17:00 | DIAGNOSTIC IMAGING REPORT ---
TWO VIEW CHEST CLINICAL HISTORY: Cough. FINDINGS: PA and lateral chest radiographs are compared to study dated 11/30/2016 and correlated with chest CT dated 02/04/2016. The cardiomediastinal silhouette is unremarkable. Chronic interstitial thickening/scarring and nodularity is similar to previous. No airspace consolidation or pleural effusion is identified. There is no pneumothorax. The skeletal structures are osteopenic. Degenerative change is noted throughout the thoracic spine. Postoperative change is seen in the lower cervical spine. IMPRESSION: No active disease in the chest. Electronically signed by: Mark Dsouza M.D. 02/13/2017 4:58 PM Dictated Date/Time: 02/13/2017 4:57 PM
[2017-02-13 18:14] LABS: HEMATOCRIT 42.6 % (42-52); MEAN CELL VOLUME 85.9 fL (80-100); MEAN PLATELET VOLUME 10.2 fL (7.4-10.4); PLATELET COUNT 221 K/uL (130-400); RED BLOOD COUNT 4.96 M/uL (4.7-6.1); WHITE BLOOD COUNT 41.65 K/uL (4.8-10.8)
[2017-02-13 18:15] LABS: BASO % 0.1 %; BASO ABS # 0.06 K/uL (0-0.2); COMPLETE YES; EOS % 0.5 %; IG% 0.5 %; LYMPH % 7.6 %; LYMPH ABS # 3.17 K/uL (1.2-3.4); MONO % 2.3 %
== END | disposition home or self-care (01) ==
LOC: C.RAD1850 16:47
PROVIDERS: ATTEND Family Medicine
DX: R05 Cough (principal); A31.0 Pulmonary mycobacterial infection

== ENCOUNTER → 2017-07-23 | Outpatient (CLI) | payer BC ==
[~2017-07-23] MED LIST changes: -ASPEC325 PO; -CETI10TA84 PO; -MULT-506 PO; +OXYM0.0592 NAE; -[UNRECOGNIZED DRUG - OTHER] PO
--- NOTE | 2017-07-23 08:21 | DIAGNOSTIC IMAGING REPORT ---
SINUS CT CT DOSE: 592.97 mGy.cm HISTORY: ACUTE SINUSITIS TECHNIQUE: Multiaxial CT images of the paranasal sinuses were performed and reformatted in the coronal plane without the use of contrast. A dose lowering technique was utilized adhering to the principles of ALARA. COMPARISON: Sinus CT 02/14/2017. FINDINGS: Severely hypoplastic bilateral maxillary sinuses consistent with bilateral sinus atelectasis. This remains unchanged. The hypoplastic right maxillary sinus is completely opacified. The hypoplastic left maxillary sinus contains a 1 cm retention cyst, unchanged. There is inward bowing of the martines of the maxillary sinuses which is also unchanged. There is also overall increased orbital volume with mildly enophthalmos, unchanged. Mild S-shaped deviation of the nasal septum, unchanged. The right frontal sinus is essentially not pneumatized. This is also unchanged. The left frontal sinus, sphenoid sinuses, and ethmoid air cells are essentially clear. The mastoid air cells are clear. Unerupted tooth within the right maxilla, unchanged. The visualized brain parenchyma is unremarkable. No fluid levels within the paranasal sinuses. IMPRESSION: 1. Overall, no significant change compared to the prior study. 2. Bilateral maxillary sinus atelectasis as described above with chronic opacification on the right and a small retention cyst on the left. This results in an inward bowing of the maxillary sinus martines. Therefore, these findings favor silent sinus syndrome. Electronically signed by: Mike Cordova M.D. 07/23/2017 8:20 AM Dictated Date/Time: 07/23/2017 8:05 AM
== END | disposition home or self-care (01) ==
LOC: C.CTS 07:46
PROVIDERS: ATTEND Internal Medicine Infectious Disease
DX: J01.90 Acute sinusitis, unspecified (principal)